=== PATIENT | male | born 1930 | race Caucasian/White ===

== ENCOUNTER 2017-01-08 13:55 | Inpatient (IN) | payer OTHER ==
[~2017-01-08] VITALS: Ht 175.3 cm; Wt 70.3 kg
[2017-01-08] MEDS ORDERED: NATURAL IRON65 MG PO (15:07)
[2017-01-08] MEDS ORDERED: LASIX40 MG PO (15:07)
[2017-01-08] MEDS ORDERED: CASODEX50 MG PO (15:08)
[2017-01-08 16:50] LABS: CARBON DIOXIDE 22.2 mmol/L (21-32); CHLORIDE SERUM 107 mmol/L (98-107); CREATININE SERUM 1.3 mg/dL (0.7-1.3); GLUCOSE SERUM 87 mg/dL (74-106); POTASSIUM SERUM 4.2 mmol/L (3.5-5.1); SODIUM SERUM 141 mmol/L (136-145)
[2017-01-08 16:57] LABS: BASOPHIL % 0.7 % (0-2); PLATELET COUNT 141 x10^3mcL (130-400)
[2017-01-08 17:01] LABS: ALBUMIN 3.4 g/dL (3.4-5.0); ALKALINE PHOSPHATASE 277 U/L (46-116); ALT/SGPT 11 U/L (16-63); AST/SGOT 22 U/L (15-37); BILIRUBIN TOTAL 1.6 mg/dL (0.20-1.00); TOTAL PROTEIN, SERUM 7.2 g/dL (6.4-8.2)
[2017-01-08 17:13] LABS: RED CELL DISTRIBUTION WIDTH 21.6 % (11.5-14.5)
[2017-01-08 17:28] LABS: CK-MB 2.3 ng/mL (0-3.6)
[2017-01-08 17:44] LABS: ovalocyte/elliptocyte 1+; rbc morphology (normal/abnorm) ABNORMAL (NORMAL)
[2017-01-08 18:36] LABS: UA SPECIFIC GRAVITY >=1.030 (1.005-1.035); microscopic required? YES; urine erythrocyte 2+ (NEGATIVE)
[2017-01-08 20:15] LABS: PHOSPHOROUS 3.5 mg/dL (2.5-4.9)
[2017-01-08 20:17] LABS: CHOLESTEROL/HDL RATIO 1.8
[2017-01-08 20:24] VITALS: BP 140/91
[2017-01-08 20:24] LABS: T3 TOTAL 0.73 ng/mL
[2017-01-08 20:25] LABS: FREE THYROXINE INDEX 2.6 ug/dL (1.4-4.5); T4(THYROXINE) 6.7 ug/dL (4.7-13.3)
[2017-01-08 20:27] LABS: FREE T4 1.25 ng/dL (0.76-1.46)
[2017-01-08 20:36] VITALS: BP 140/91; Ht 175.3 cm; Wt 70.3 kg
[2017-01-09 05:43] VITALS: BP 136/82
[2017-01-09 06:11] LABS: BASOPHIL % 0.8 % (0-2)
[2017-01-09 06:21] LABS: CALCIUM 8.5 mg/dL (8.5-10.1); CARBON DIOXIDE 19.2 mmol/L (21-32); CHLORIDE SERUM 112 mmol/L (98-107); CREATININE SERUM 1.2 mg/dL (0.7-1.3); GLUCOSE SERUM 66 mg/dL (74-106); MAGNESIUM 1.9 mg/dL (1.8-2.4); PHOSPHOROUS 3.4 mg/dL (2.5-4.9); POTASSIUM SERUM 4.3 mmol/L (3.5-5.1); SODIUM SERUM 141 mmol/L (136-145)
[2017-01-09 06:40] LABS: PLATELET COUNT 127 x10^3mcL (130-400); RED CELL DISTRIBUTION WIDTH 21.6 % (11.5-14.5)
[2017-01-09 08:23] LABS: ovalocyte/elliptocyte 1+; rbc morphology (normal/abnorm) ABNORMAL (NORMAL)
[2017-01-09 09:07] VITALS: BP 137/79
[2017-01-09 13:13] VITALS: BP 120/69
[2017-01-09 17:18] VITALS: BP 132/80
[2017-01-09 21:02] VITALS: BP 130/57
[2017-01-10 05:36] VITALS: BP 124/75
[2017-01-10 05:55] LABS: BASOPHIL % 0.7 % (0-2); PLATELET COUNT 130 x10^3mcL (130-400)
[2017-01-10 06:22] LABS: RED CELL DISTRIBUTION WIDTH 20.7 % (11.5-14.5)
[2017-01-10 06:24] LABS: rbc morphology (normal/abnorm) ABNORMAL (NORMAL)
[2017-01-10 06:25] LABS: ovalocyte/elliptocyte 1+
[2017-01-10 06:37] LABS: CALCIUM 8.3 mg/dL (8.5-10.1); CARBON DIOXIDE 24.2 mmol/L (21-32); CHLORIDE SERUM 107 mmol/L (98-107); CREATININE SERUM 1.4 mg/dL (0.7-1.3); GLUCOSE SERUM 67 mg/dL (74-106); MAGNESIUM 1.6 mg/dL (1.8-2.4); PHOSPHOROUS 3.3 mg/dL (2.5-4.9); POTASSIUM SERUM 3.8 mmol/L (3.5-5.1); SODIUM SERUM 142 mmol/L (136-145)
[2017-01-10 09:07] VITALS: BP 128/74
[2017-01-10 13:44] VITALS: BP 119/69
[2017-01-10 17:27] VITALS: BP 128/70
[2017-01-10 21:28] VITALS: BP 111/67
[2017-01-11 05:37] VITALS: BP 121/68
[2017-01-11 06:19] LABS: BASOPHIL % 0.5 % (0-2); PLATELET COUNT 143 x10^3mcL (130-400)
[2017-01-11 06:27] LABS: RED CELL DISTRIBUTION WIDTH 21.6 % (11.5-14.5)
[2017-01-11 06:38] LABS: CALCIUM 8.5 mg/dL (8.5-10.1); CARBON DIOXIDE 26.4 mmol/L (21-32); CHLORIDE SERUM 102 mmol/L (98-107); CREATININE SERUM 1.5 mg/dL (0.7-1.3); GLUCOSE SERUM 82 mg/dL (74-106); MAGNESIUM 1.4 mg/dL (1.8-2.4); PHOSPHOROUS 3.4 mg/dL (2.5-4.9); POTASSIUM SERUM 3.5 mmol/L (3.5-5.1); SODIUM SERUM 141 mmol/L (136-145)
[2017-01-11 07:02] LABS: rbc morphology (normal/abnorm) ABNORMAL (NORMAL)
[2017-01-11 07:45] VITALS: BP 113/65
[2017-01-11 14:00] VITALS: BP 122/61
[2017-01-11 17:15] VITALS: BP 127/69
[2017-01-11 18:02] LABS: SOURCE FLUID PLEURAL
[2017-01-11 19:40] LABS: APPEARANCE FLUID HAZY; COLOR FLUID YELLOW; RBC FLUID 663 /cumm; SOURCE FLUID PLEURAL; WBC FLUID 80 /cumm
[2017-01-11 19:41] LABS: LYMPHOCYTE FLUID 84 %; MONOCYTE FLUID 12 %
[2017-01-11 22:38] VITALS: BP 102/63
[2017-01-12 06:23] LABS: BASOPHIL % 0.6 % (0-2); PLATELET COUNT 154 x10^3mcL (130-400)
[2017-01-12 06:37] LABS: RED CELL DISTRIBUTION WIDTH 21.4 % (11.5-14.5)
[2017-01-12 06:38] LABS: rbc morphology (normal/abnorm) ABNORMAL (NORMAL)
[2017-01-12 06:47] LABS: CALCIUM 8.7 mg/dL (8.5-10.1); CARBON DIOXIDE 30.8 mmol/L (21-32); CHLORIDE SERUM 98 mmol/L (98-107); CREATININE SERUM 1.5 mg/dL (0.7-1.3); GLUCOSE SERUM 82 mg/dL (74-106); PHOSPHOROUS 3.8 mg/dL (2.5-4.9); SODIUM SERUM 140 mmol/L (136-145)
[2017-01-12 06:50] LABS: POTASSIUM SERUM 2.8 mmol/L (3.5-5.1)
[2017-01-12 07:04] VITALS: BP 123/65
[2017-01-12 09:29] VITALS: BP 106/56
[2017-01-12] MEDS ORDERED: COR3 PO (11:11)
[2017-01-12] MEDS ORDERED: ZES10 PO (11:12)
[2017-01-12] MEDS ORDERED: ALD25 PO (11:12)
[2017-01-12 13:25] VITALS: BP 106/59
[2017-01-12 18:42] VITALS: BP 106/59
== END 2017-01-12 20:00 | disposition home or self-care (01) | DRG 391 ==
LOC: ED 13:55 → DU 19:27
PROVIDERS: Emergency Medicine; Family Medicine; Internal Medicine; ADMIT Family Medicine
PROC: 0DJ08ZZ Inspection of Upper Intestinal Tract, Via Natural or Artificial Opening Endoscopic (ICD-10-PCS; principal; 2017-01-11 12:00)
DX: K22.8 Other specified diseases of esophagus (principal); I50.43 Acute on chronic combined systolic (congestive) and diastolic (congestive) heart failure; N17.0 Acute kidney failure with tubular necrosis; C79.51 Secondary malignant neoplasm of bone; I42.9 Cardiomyopathy, unspecified; E86.0 Dehydration; E87.6 Hypokalemia; E83.42 Hypomagnesemia; E83.51 Hypocalcemia; I11.0 Hypertensive heart disease with heart failure; E87.8 Other disorders of electrolyte and fluid balance, not elsewhere classified; C61 Malignant neoplasm of prostate; R73.03 Prediabetes; I25.10 Atherosclerotic heart disease of native coronary artery without angina pectoris; D50.9 Iron deficiency anemia, unspecified; R74.0 Nonspecific elevation of levels of transaminase and lactic acid dehydrogenase [LDH]; Z95.0 Presence of cardiac pacemaker; Z68.22 Body mass index [BMI] 22.0-22.9, adult; I73.9 Peripheral vascular disease, unspecified
CPT/HCPCS: 32555; 43235; 82962; 83880; 84439; 88344; 92610-GN; C1729; J1200; J1610; J2250; J2270; J2310; J2405; J2543; J3010; J3475; J3480; J3490; J7030; J7040; J7042; J7070; J8999; Q0092

== ENCOUNTER 2017-05-31 12:41 | Emergency (ER) | payer OTHER ==
[~2017-05-31] VITALS: Ht 167.6 cm; Wt 67.1 kg
[~2017-05-31 12:41] MED LIST: ALD25 PO; CASODEX50 MG PO; COR3 PO; LASIX40 MG PO; NATURAL IRON65 MG PO; ZES10 PO
[2017-05-31 15:36] VITALS: Ht 167.6 cm; Wt 67.1 kg
[2017-05-31 17:47] LABS: BASOPHIL % 1.7 % (0-2)
[2017-05-31 18:08] LABS: PLATELET COUNT 112 x10^3mcL (130-400); RED CELL DISTRIBUTION WIDTH 18.4 % (11.5-14.5)
[2017-05-31 18:28] LABS: CALCIUM 8.6 mg/dL (8.5-10.1); CARBON DIOXIDE 24.5 mmol/L (21-32); CHLORIDE SERUM 107 mmol/L (98-107); CREATININE SERUM 1.6 mg/dL (0.7-1.3); GLUCOSE SERUM 109 mg/dL (74-106); POTASSIUM SERUM 4.5 mmol/L (3.5-5.1); SODIUM SERUM 142 mmol/L (136-145)
[2017-05-31 18:32] LABS: ALBUMIN 3.5 g/dL (3.4-5.0); ALKALINE PHOSPHATASE 196 U/L (46-116); ALT/SGPT 22 U/L (16-63); AST/SGOT 20 U/L (15-37); BILIRUBIN TOTAL 1.6 mg/dL (0.20-1.00); TOTAL PROTEIN, SERUM 6.5 g/dL (6.4-8.2)
[2017-05-31 19:33] VITALS: BP 128/74
== END 2017-05-31 19:33 | disposition home or self-care (01) ==
LOC: ED 12:41
PROVIDERS: Emergency Medicine
DX: B34.9 Viral infection, unspecified (principal); E86.0 Dehydration; Z95.0 Presence of cardiac pacemaker; Z86.79 Personal history of other diseases of the circulatory system
CPT/HCPCS: 83880; 87804; J1956; J7030